=== PATIENT | male | born 1965 | race Asian ===

== ENCOUNTER → 2025-01-12 | Day surgery (SDC) | payer OTHER ==
[~2025-01-12] MED LIST: AMITRIPTYLINE H10 MG PO; CENTRUM ADULTS1 EACH PO; FENTANYL CITRATE/PF 100MCG/2 ML INJ ONE; LIDOCAINE HCL 2% LOCAL INJ 5 ML SDV VIAL INJ ONE; ONDANSETRON HCL INJ 2MG/ML 2ML 2 MG/ML VIAL ONE; PROPOFOL IV EMULSION 10 MG/ML 20 ML VIAL ONE; SEVOFLURANE INHAL SOLN 250 ML PEN BTL ONE
[2025-01-12] MEDS: LACTATED RINGER'S 1,000 ML ONE (07:14)
[2025-01-12] MEDS: CEFTRIAXONE 1 GM VIAL ONE (07:14)
[2025-01-12 08:44] VITALS: TEMP 97.3
[2025-01-12 09:40] VITALS: BP 120/81; PULSE 50; RESP 18; O2SAT 100
== END | disposition home or self-care (01) ==
LOC: OR 05:44
PROVIDERS: ATTEND Urology
DX: N35.812 Other bulbous urethral stricture, male (principal); N35.819 Other urethral stricture, male, unspecified site; N40.0 Benign prostatic hyperplasia without lower urinary tract symptoms; N32.89 Other specified disorders of bladder; Z01.810 Encounter for preprocedural cardiovascular examination; Z79.899 Other long term (current) drug therapy
CPT/HCPCS: 52281; 74420; 93005; C1758; C1769; J0696; J2003; J2405; J2704; J3010; J7121